=== PATIENT | male | born 1970 | race Hispanic/Latino ===

== ENCOUNTER 2019-01-07 15:43 | Emergency (ER) | payer BC ==
[2019-01-07] MEDS ORDERED: LIDOCAINE HCL 1% 20 ML VIAL ONE (15:54)
[2019-01-07] MEDS ORDERED: TETANUS/DIPHTHERIA TOXOID [ADULT] 0.5 ML VIAL IM ONE (15:54)
== END 2019-01-07 17:17 | disposition home or self-care (01) ==
LOC: EDH 15:43
DX: S61.212A Laceration without foreign body of right middle finger without damage to nail, initial encounter (principal); S61.211A Laceration without foreign body of left index finger without damage to nail, initial encounter; W26.8XXA Contact with other sharp object(s), not elsewhere classified, initial encounter; Y93.89 Activity, other specified; Y92.89 Other specified places as the place of occurrence of the external cause; Y99.0 Civilian activity done for income or pay
CPT/HCPCS: 12042; 73130; 90471; 90714